=== PATIENT | female | born 1965 | race American Indian/Alaskan Native ===

== ENCOUNTER 2017-11-13 11:02 | Outpatient (CLI) | payer OTHER ==
--- NOTE | 2017-11-14 10:38 | Mammography Report ---
BILATERAL DIGITAL SCREENING MAMMOGRAM with CAD: 11/13/17 11:02:00 CLINICAL: Routine screening. COMPARISON:None available. FINDINGS: The breasts are almost entirely fatty. No mass, architectural distortion or suspicious calcifications. IMPRESSION: No mammographic evidence of malignancy. BI-RADS CATEGORY: 1 - - Negative RECOMMENDATION: Routine mammographic screening in one year. COMMENT: Patient follow-up letters are generated by our [employer] application.
== END 2017-11-13 11:03 | disposition home or self-care (01) ==
LOC: MAMMO 11:02
PROVIDERS: ATTEND Physician Assistant
DX: Z12.31 Encounter for screening mammogram for malignant neoplasm of breast (principal)
CPT/HCPCS: 77067

== ENCOUNTER 2021-02-07 14:32 | Emergency (ER) | payer SELFPAY ==
[2021-02-07 17:10] VITALS: BP 129/77
[2021-02-07] MEDS ORDERED: ASPIRIN 325 MG TAB PO ONE (17:10)
[2021-02-07 17:26] LABS: Basophils % (Auto) 0.6 % (0.0-1.8); Eosinophils # (Auto) 0.1 K/mm3 (0.0-0.4); Eosinophils % (Auto) 1.2 % (0.0-4.3); Hematocrit 36.6 % (30.3-42.9); Hemoglobin 12.2 gm/dl (10.1-14.3); Lymphocytes # (Auto) 1.7 K/mm3 (1.2-5.4); Lymphocytes % (Auto) 21.7 % (13.4-35.0); Mean Corpuscular HGB Conc 33 % (30-34); Mean Corpuscular Volume 90 fl (79-97); Monocytes # (Auto) 0.5 K/mm3 (0.0-0.8); Monocytes % (Auto) 6.7 % (0.0-7.3); Platelet Count 280 K/mm3 (140-440); Red Blood Count 4.05 M/mm3 (3.65-5.03); Red Cell Distribution Width 14.4 % (13.2-15.2)
--- NOTE | 2021-02-07 17:48 | XRay Report ---
CHEST 2 VIEWS INDICATION / CLINICAL INFORMATION: Abdominal pain. Anorexia and weakness for 2 weeks. COMPARISON: 05/31/14. FINDINGS: SUPPORT DEVICES: None. HEART / MEDIASTINUM: There is mild cardiomegaly. Pulmonary vasculature is normal. The aorta is normal in caliber. LUNGS / PLEURA: No significant pulmonary or pleural abnormality. No pneumothorax. ADDITIONAL FINDINGS: The visualized upper abdomen is unremarkable. IMPRESSION: Mild cardiomegaly without acute pulmonary disease. Signer Name: Hayes William MD Signed: 02/07/2021 5:44 PM Workstation Name: [id number]
[2021-02-07 17:54] LABS: Alanine Aminotransferase 15 units/L (7-56); Albumin 4.3 g/dL (3.9-5); BUN/Creatinine Ratio 13; Blood Urea Nitrogen 13 mg/dL (7-17); Calcium 8.9 mg/dL (8.4-10.2); Hemolysis Index 32
[2021-02-07] MEDS ORDERED: ONDANSETRON 4 MG/2 ML INJ IV ONE (20:12)
[2021-02-07] MEDS ORDERED: SODIUM CHLORIDE 0.9% 1000 ML 1,000 ML IV ONE (20:12)
[2021-02-07] MEDS ORDERED: DICYCLOMINE 20 MG TAB PO ONE (20:12)
[2021-02-07] MEDS ORDERED: FAMOTIDINE 20 MG/2 ML INJ IV ONE (20:12)
[2021-02-08 01:57] LABS: Bacteria,Urine 1+ /HPF (Negative); Bilirubin,Urine NEG (Negative); Blood,Urine SM (Negative); Color,Urine Yellow (Yellow); Hyaline Casts,Urine 1 /LPF; Mucus,Urine FEW /HPF; Protein,Urine <15 mg/dL mg/dL (Negative); Urobilinogen,Urine < 2.0 mg/dL (<2.0)
[2021-02-08] MEDS ORDERED: cefTRIAXone/NS 1 GM/50 ML 1 GM/50 ML BAG IV ONE (02:01)
--- NOTE | 2021-02-08 02:06 | Emergency Department Report ---
ED Abdominal Pain HPI - General Chief Complaint: Abdominal Pain Stated Complaint: ABD PAIN Source: patient Mode of arrival: Ambulatory Limitations: No Limitations - History of Present Illness Initial Comments: Patient is a 55-year-old -[place] female with a history of hyp erthyroidism who presents to the ED with complaint of acute onset persistent intractable generalized weakness and fatigue, diffuse body aches and pains, low back pain, diarrhea and epigastric pain for the last 2 days, worse in the last 12 hours. Patient states that no one else at home is had similar symptoms. Patient denies dysuria, urinary frequency and urgency, vaginal bleeding, vaginal discharge, nausea and vomiting, chest pain, shortness of breath, nasal and sinus congestion, palpitations, headache, dizziness or syncope, fever and chills. MD Complaint: abdominal pain, other (Diarrhea; low back pain) -: Sudden, days(s) (2) Location: epigastric Radiation: back (Low back) Migration to: no migration Severity: moderate Severity scale (0 -10): 4 Quality: aching, dull Consistency: constant Improves With: nothing Worsens With: nothing Associated Symptoms: denies other symptoms, diarrhea, anorexia. denies: nausea, vomiting, fever, chills, constipation, dysuria, hematemesis, hematochezia, melena, hematuria, syncope - Related Data Home Medications Medication Instructions Recorded Confirmed Last Taken Calcium Carb & Citrate/Vit D3 1 tab PO DAILY 05/29/14 05/29/14 Unknown [Calcium + Vitamin D3 Caplet] Enoxaparin [Lovenox] 80 mg SQ BID 05/29/14 05/29/14 Unknown Ergocalciferol [Vitamin D2] 1 cap PO QWEEK 05/29/14 05/29/14 Unknown Ergocalciferol(Vitamin D2)(Nf) 400 units PO DAILY 05/29/14 05/29/14 Unknown [Vitamin D] HYDROcodone/APAP 10-325 [[place] 1 tab PO Q4-6H PRN 05/29/14 05/29/14 Unknown 10/325 mg] Methimazole [Tapazole] 20 mg PO BID 05/29/14 05/29/14 Unknown Ondansetron [Zofran] 4 mg PO Q12H PRN 05/29/14 05/29/14 Unknown Pantoprazole [Protonix TAB] 40 mg PO DAILY 05/29/14 05/29/14 Unknown Propranolol HCl 60 mg PO BID 05/29/14 05/29/14 Unknown Previous Rx's Medication Instructions Recorded Last Taken Type Dicyclomine [Bentyl] 20 mg PO Q6H PRN #30 tablet 02/08/21 Unknown Rx Famotidine [Pepcid] 20 mg PO BID #60 tablet 02/08/21 Unknown Rx Ondansetron [Zofran Odt] 4 mg PO Q8HR PRN #15 tab.rapdis 02/08/21 Unknown Rx cephALEXin [Keflex] 500 mg PO Q8HR #30 cap 02/08/21 Unknown Rx Allergies Allergy/AdvReac Type Severity Reaction Status Date / Time No Known Allergies Allergy Unverified 10/23/13 18:43 ED Review of Systems ROS: Stated complaint: ABD PAIN Other details as noted in HPI Constitutional: denies: chills, fever Eyes: denies: eye pain, eye discharge, vision change ENT: denies: ear pain, throat pain Respiratory: denies: cough, shortness of breath, wheezing Cardiovascular: denies: chest pain, palpitations Endocrine: no symptoms reported Gastrointestinal: abdominal pain, diarrhea. denies: nausea, vomiting Genitourinary: denies: urgency, dysuria, discharge Musculoskeletal: back pain (Low back pain), arthralgia, myalgia. denies: joint swelling Skin: denies: rash, lesions Neurological: denies: headache, weakness, paresthesias Psychiatric: denies: anxiety, depression Hematological/Lymphatic: denies: easy bleeding, easy bruising ED Past Medical Hx - Past Medical History Previous Medical History?: No Hx Congestive Heart Failure: No Hx Diabetes: No Hx Asthma: No Hx COPD: No Hx HIV: No Additional medical history: hyperthyroid. "rapid heart beat" - Surgical History Past Surgical History?: Yes Additional Surgical History: thyroidectomy, partial parathyroidectomy: 05/26/14 - Social History Smoking Status: Never Smoker - Medications Home Medications: Home Medications Medication Instructions Recorded Confirmed Last Taken Type Calcium Carb & Citrate/Vit D3 1 tab PO DAILY 05/29/14 05/29/14 Unknown History [Calcium + Vitamin D3 Caplet] Enoxaparin [Lovenox] 80 mg SQ BID 05/29/14 05/29/14 Unknown History Ergocalciferol [Vitamin D2] 1 cap PO QWEEK 05/29/14 05/29/14 Unknown History Ergocalciferol(Vitamin D2)(Nf) 400 units PO DAILY 05/29/14 05/29/14 Unknown His tory [Vitamin D] HYDROcodone/APAP 10-325 [[place] 1 tab PO Q4-6H PRN 05/29/14 05/29/14 Unknown History 10/325 mg] Methimazole [Tapazole] 20 mg PO BID 05/29/14 05/29/14 Unknown History Ondansetron [Zofran] 4 mg PO Q12H PRN 05/29/14 05/29/14 Unknown History Pantoprazole [Protonix TAB] 40 mg PO DAILY 05/29/14 05/29/14 Unknown History Propranolol HCl 60 mg PO BID 05/29/14 05/29/14 Unknown History Dicyclomine [Bentyl] 20 mg PO Q6H PRN #30 tablet 02/08/21 Unknown Rx Famotidine [Pepcid] 20 mg PO BID #60 tablet 02/08/21 Unknown Rx Ondansetron [Zofran Odt] 4 mg PO Q8HR PRN #15 tab.rapdis 02/08/21 Unknown Rx cephALEXin [Keflex] 500 mg PO Q8HR #30 cap 02/08/21 Unknown Rx ED Physical Exam - General Limitations: No Limitations General appearance: alert, in no apparent distress - Head Head exam: Present: atraumatic, normocephalic, normal inspection - Eye Eye exam: Present: normal appearance, PERRL, EOMI Pupils: Present: normal accommodation - ENT ENT exam: Present: normal exam, normal orophraynx, mucous membranes moist, TM's normal bilaterally, normal external ear exam - Neck Neck exam: Present: normal inspection, full ROM - Respiratory Respiratory exam: Present: normal lung sounds bilaterally. Absent: respiratory distress, wheezes, rales, rhonchi, chest wall tenderness, accessory muscle use, decreased breath sounds - Cardiovascular Cardiovascular Exam: Present: regular rate, normal rhythm, normal heart sounds. Absent: systolic murmur, diastolic murmur, rubs, gallop - GI/Abdominal GI/Abdominal exam: Present: soft, normal bowel sounds. Absent: tenderness, guarding, hyperactive bowel sounds, hypoactive bowel sounds, organomegaly - Extremities Exam Extremities exam: Present: normal inspection, full ROM, normal capillary refill - Back Exam Back exam: Present: normal inspection, full ROM. Absent: tenderness, CVA tenderness (R), CVA tenderness (L), muscle spasm, paraspinal tenderness, vertebral tenderness - Neurological Exam Neurological exam: Present: alert, oriented X3, CN II-XII intact, normal gait, reflexes normal - Psychiatric Psychiatric exam: Present: normal affect, normal mood - Skin Skin exam: Present: warm, dry, intact, normal color. Absent: rash ED Course Vital Signs 02/07/21 17:08 Temperature 98.8 F Pulse Rate 72 Respiratory 18 Rate Blood Pressure 129/77 O2 Sat by Pulse 98 Oximetry ED Medical Decision Making - Lab Data Result diagrams: 02/07/21 17:15 02/07/21 17:15 - Radiology Data Radiology results: report reviewed, image reviewed [address] [address] XRay Report Signed Patient: NENITA CHAIREZ MR#: [id number] : 1965 Acct:[id number] Age/Sex: 55 / F ADM Date: 02/07/21 Loc: ED Attending Dr: Ordering Physician: ED MD CJ Date of Service: 02/07/21 Procedure(s): XR chest routine 2V Accession Number(s): [id number] cc: ED MD CJ Fluoro Time In Minutes: CHEST 2 VIEWS INDICATION / CLINICAL INFORMATION: Abdominal pain. Anorexia and weakness for 2 weeks. COMPARISON: 05/31/14. FINDINGS: SUPPORT DEVICES: None. HEART / MEDIASTINUM: There is mild cardiomegaly. Pulmonary vasculature is normal. The aorta is normal in caliber. LUNGS / PLEURA: No significant pulmonary or pleural abnormality. No pneumothorax. ADDITIONAL FINDINGS: The visualized upper abdomen is unremarkable. IMPRESSION: Mild cardiomegaly without acute pulmonary disease. Signer Name: Hayes William MD Signed: 02/07/2021 5:44 PM Workstation Name: [id number] Transcribed By: RT Dictated By: Hayes William MD Electronically Authenticated By: Hayes William MD Signed Date/Time: 02/07/211743 DD/ 41 TD/TT: - Medical Decision Making This is a 55-year-old -[place] female with a history of hyperthyroidism who presents to the ED with complaint of acute onset persistent intractable generalized weakness and fatigue, diffuse body aches and pains, low back pain, diarrhea and epigastric pain for the last 2 days, worse in the last 12 hours. Patient states that no one else at home is had similar symptoms. In the ED, patient is alert and oriented x3 and is not in any distress. Patient was treated in the ED with antacids, antiemetics, and also given normal saline 1 L IV bolus x1. Chest x-ray showed no acute cardiopulmonary abnormalities or pneumonitis. Lab test results were reviewed and are all nonactionable including initial and repeat troponin levels. Urinalysis showed significant urinary tract infection. Patient received Rocephin 1 g IV bolus x1. On reevaluation, patient felt better, patient was discharged home on antibiotics and antiemetics as well as antacids with pain medications. Patient was advised to follow-up with her primary care physician in 5 to 7 days for reevaluation or return to the ED immediately if symptoms get worse. - Differential Diagnosis GERD; gastroenteritis; UTI; gastritis; muscle spasm Critical care attestation.: If time is entered above; I have spent that time in minutes in the direct care of this critically ill patient, excluding procedure time. ED Disposition Clinical Impression: Acute urinary tract infection Abdominal pain Qualifiers: Abdominal location: generalized Qualified Code(s): R10.84 - Generalized abdominal pain Disposition: DC-01 TO HOME OR SELFCARE Is pt being admited?: No Does the pt Need Aspirin: No Condition: Stable Instructions: Abdominal Pain (ED), Abdominal Pain, Adult, [id number], Urinary Tract Infection, Adult, [id number] Additional Instructions: All lab test results were reviewed and are all nonactionable. Chest x-ray showed no acute cardiopulmonary abnormalities or pneumonitis. Urinalysis showed significant urinary tract infection. Therefore take medication with food, drink plenty of fluids and follow-up with your primary care physician in 5 to 7 days for reevaluation. Return to the ED immediately if symptoms get worse. Prescriptions: Dicyclomine [Bentyl] 20 mg PO Q6H PRN #30 tablet PRN Reason: Abdominal pain cephALEXin [Keflex] 500 mg PO Q8HR #30 cap Famotidine [Pepcid] 20 mg PO BID #60 tablet Ondansetron [Zofran Odt] 4 mg PO Q8HR PRN #15 tab.rapdis PRN Reason: Nausea Referrals: [facility] [Provider Group] - 7-10 days Time of Disposition: 02:08 Print Language: GHANAIAN
== END 2021-02-08 03:30 | disposition home or self-care (01) ==
LOC: ED 14:32
DX: N39.0 Urinary tract infection, site not specified (principal); R10.13 Epigastric pain; R19.7 Diarrhea, unspecified; R53.83 Other fatigue; M54.5 Low back pain; Z98.890 Other specified postprocedural states; Z79.899 Other long term (current) drug therapy
CPT/HCPCS: 36415; 71046; 80053; 81001; 84484; 85025; 87076; 87086; 87186; 96361; 96365; 96375; 99284; J0696; J2405; J7030